=== PATIENT | female | born 1970 | race American Indian/Alaskan Native ===

== ENCOUNTER 2017-08-24 12:58 | Outpatient (CLI) | payer BC ==
--- NOTE | 2017-08-24 16:23 | Mammography Report ---
BILATERAL DIGITAL SCREENING MAMMOGRAM with CAD: 08/24/17 12:58:00 CLINICAL: Routine screening. COMPARISON:08/22/16 FINDINGS: The breasts are heterogeneously dense, which may obscure small masses. No mass, architectural distortion or suspicious calcifications. IMPRESSION: No mammographic evidence of malignancy. BI-RADS CATEGORY: 1 - - Negative RECOMMENDATION: Routine mammographic screening in one year. COMMENT: Patient follow-up letters are generated by our [employer] application.
== END 2017-08-24 12:59 | disposition home or self-care (01) ==
LOC: SPVWC 12:58
PROVIDERS: ATTEND Internal Medicine
DX: Z12.31 Encounter for screening mammogram for malignant neoplasm of breast (principal)
CPT/HCPCS: 77067; G0202

== ENCOUNTER 2019-09-06 09:08 | Outpatient (CLI) | payer BC ==
--- NOTE | 2019-09-06 16:24 | Mammography Report ---
DIGITAL SCREENING MAMMOGRAM WITH CAD, 09/06/2019 INDICATION: Routine screening mammography. TECHNIQUE: Digital bilateral 2D mammography was obtained in the craniocaudal and mediolateral obliq ue projections. This examination was interpreted with the benefit of Computer-Aided Detection analysi s. COMPARISON: 08/25/2018 FINDINGS: Breast Density: The breasts are heterogeneously dense, which may obscure small masses. Left asymmetries on both views require additional imaging. No architectural distortion or suspicious calcifications. There is no evidence of dominant mass, suspicious calcifications or architectural dis tortion in the right breast. IMPRESSION: Left asymmetries requiring additional imaging. Recommend recall for left spot compression views and left breast ultrasound if needed. Follow up recommendation: Special View: Spot Category 0: Incomplete. Needs additional imaging evaluation and/or prior mammograms for comparison. A "normal" or negative report should not discourage follow up or biopsy of a clinically significant f inding. A written summary of these findings will be mailed to the patient. The patient will be entered into a mammography reporting system which will generate a reminder letter for the patient's next appointmen t at the appropriate interval. The [employer] recommends yearly mammograms starting at age 40 and continuing as l venita as a woman is in good health. Breast MRI is recommended for women with an approximate 20-25% or greater lifetime risk of breast cancer, including women with a strong family history of breast or ova aniyah cancer or who have been treated for Hodgkin's disease. Signer Name: Nabil Sales MD Signed: 09/06/2019 4:19 PM Workstation Name: [id number]
== END 2019-09-06 09:09 | disposition home or self-care (01) ==
LOC: SPVWC 09:08
PROVIDERS: ATTEND Internal Medicine
DX: Z12.31 Encounter for screening mammogram for malignant neoplasm of breast (principal)
CPT/HCPCS: 77067

== ENCOUNTER 2019-09-27 15:03 | Outpatient (CLI) | payer BC ==
--- NOTE | 2019-09-27 15:52 | Mammography Report ---
DIGITAL LEFT DIAGNOSTIC MAMMOGRAM WITH CAD, 09/27/2019 INDICATION: ABNORMAL MAMMO TECHNIQUE: Digital left mammographic imaging was performed. Spot compression views were obtained. This examination was interpreted with the benefit of Computer-aided Detection analysis. COMPARISON: 09/06/2019 Breast Density: The breast is heterogeneously dense, which may obscure small masses. FINDINGS: Lateral and spot compression ML, MLO and CC views were performed and are negative. Satisfac tory effacement of asymmetries. IMPRESSION: No mammographic evidence of malignancy. Follow up recommendation: Routine BI-RADS Category 1: Negative. A "normal" or negative report should not discourage follow up or biopsy of a clinically significant f inding. A written summary of these findings will be mailed to the patient. The patient will be entered into a mammography reporting system which will generate a reminder letter for the patient's next appointmen t at the appropriate interval. According to the [employer], yearly mammograms are recommended starting at age 40 and continuing as long as a woman is in good health. Breast MRI is recommended for women with an celine roximately 20-25% or greater lifetime risk of breast cancer, including women with a strong family his tory of breast or ovarian cancer and women who have been treated for Hodgkin's disease. Signer Name: Nabil Sales MD Signed: 09/27/2019 3:47 PM Workstation Name: [id number]
== END 2019-09-27 15:04 | disposition home or self-care (01) ==
LOC: SPVWC 15:03
PROVIDERS: ATTEND Internal Medicine
DX: R92.2 Inconclusive mammogram (principal); R92.8 Other abnormal and inconclusive findings on diagnostic imaging of breast

== ENCOUNTER 2020-10-09 10:52 | Outpatient (CLI) | payer BC ==
--- NOTE | 2020-10-09 13:37 | Mammography Report ---
DIGITAL SCREENING MAMMOGRAM WITH CAD, 10/09/2020 CLINICAL INFORMATION / INDICATION: Routine screening mammography. SCREENING MAMMO TECHNIQUE: Digital bilateral 2D mammography was obtained in the craniocaudal and mediolateral obliqu e projections. This examination was interpreted with the benefit of Computer-Aided Detection analysis . COMPARISON: 08/22/2016 through 09/06/2019. FINDINGS: Breast Density: There are scattered areas of fibroglandular density. No dominant mass, suspicious calcifications, or architectural distortion in either breast. IMPRESSION: No mammographic evidence of malignancy. Follow up recommendation: Routine yearly BI-RADS Category 1: Negative. A "normal" or negative report should not discourage follow up or biopsy of a clinically significant f inding. A written summary of these findings will be mailed to the patient. The patient will be entered into a mammography reporting system which will generate a reminder letter for the patient's next appointmen t at the appropriate interval. The [employer] recommends yearly mammograms starting at age 40 and continuing as l venita as a woman is in good health. Breast MRI is recommended for women with an approximate 20-25% or greater lifetime risk of breast cancer, including women with a strong family history of breast or ova aniyah cancer or who have been treated for Hodgkin's disease. Signer Name: Daniel Puentes MD Signed: 10/09/2020 1:32 PM Workstation Name: [id number]
== END 2020-10-09 10:53 | disposition home or self-care (01) ==
LOC: SPVWC 10:52
PROVIDERS: ATTEND Internal Medicine
DX: Z12.31 Encounter for screening mammogram for malignant neoplasm of breast (principal)
CPT/HCPCS: 77067

== ENCOUNTER 2021-12-11 15:22 | Outpatient (CLI) | payer BC ==
--- NOTE | 2021-12-13 08:59 | Mammography Report ---
DIGITAL SCREENING MAMMOGRAM WITH CAD, 12/13/2021 CLINICAL INFORMATION / INDICATION: Routine screening mammography. SCREENING MAMMO TECHNIQUE: Digital bilateral 2D mammography was obtained in the craniocaudal and mediolateral obliqu e projections. This examination was interpreted with the benefit of Computer-Aided Detection analysis . COMPARISON: 10/09/20, 09/06/19, 08/25/18 FINDINGS: Breast Density: There are scattered areas of fibroglandular density. No dominant mass, suspicious calcifications, or architectural distortion in either breast. IMPRESSION: No mammographic evidence of malignancy. No significant change. Follow up recommendation: Routine yearly BI-RADS Category 1: NEGATIVE A "normal" or negative report should not discourage follow up or biopsy of a clinically significant f inding. A written summary of these findings will be mailed to the patient. The patient will be entered into a mammography reporting system which will generate a reminder letter for the patient's next appointmen t at the appropriate interval. The [employer] recommends yearly mammograms starting at age 40 and continuing as l venita as a woman is in good health. Breast MRI is recommended for women with an approximate 20-25% or greater lifetime risk of breast cancer, including women with a strong family history of breast or ova aniyah cancer or who have been treated for Hodgkin's disease. Signer Name: Radha Pierre MD Signed: 12/13/2021 8:55 AM Workstation Name: [id number]
== END 2021-12-11 15:23 | disposition home or self-care (01) ==
LOC: SPVWC 15:22
PROVIDERS: ATTEND Internal Medicine
DX: Z12.31 Encounter for screening mammogram for malignant neoplasm of breast (principal)
CPT/HCPCS: 77067